=== PATIENT | female | born 1990 | race Caucasian/White ===

== ENCOUNTER → 2018-01-22 16:46 | Outpatient (CLI) | payer BC, SELFPAY ==
--- NOTE | 2018-01-22 16:51 | RAD_ITS ---
STUDY: X-RAY - LEFT ANKLE REASON FOR EXAM: Female, 27 years old. Pain, soft tissue swelling and bruising left lateral ankle, injury 5 days ago TECHNIQUE: 3 view(s) of the ankle. COMPARISON: None. FINDINGS: Normal visualized distal tibia and fibula. Normal medial and lateral malleoli. Normal tibiotalar articulation and ankle mortise. Normal visualized talus and calcaneus. The visualized subtalar, talonavicular, calcaneocuboid and tarsal articulations are normal. There is soft tissue swelling over the lateral malleolus. RAD/Ankle min 3 Views IMPRESSION: The osseous structures appear normal. There is soft tissue swelling over the lateral malleolus. Electronically Signed: Michelet Sadler MD at 20:46 EDT , Service support ,
== END ==
LOC: MTRAD 16:49
PROVIDERS: Family Provider Family Medicine; PCP Family Medicine; Visit Provider Family Medicine
DX: M25.572 Pain in left ankle and joints of left foot (principal)
CPT/HCPCS: 73610

== ENCOUNTER → 2019-03-12 09:39 | Outpatient (CLI) | payer BC, SELFPAY ==
[2019-03-12 13:12] LABS: T4 Total, Thyroxin 13.1 ug/dL (4.8-13.9); Thyroid Stim Hormone (TSH) 4.77 uIU/mL (0.358-3.74)
== END ==
PROVIDERS: Family Provider Family Medicine; PCP Family Medicine; Referring Provider Family Medicine; Visit Provider Family Medicine
DX: E03.9 Hypothyroidism, unspecified (principal)
CPT/HCPCS: 36415; 84436; 84443

== ENCOUNTER → 2020-03-29 15:39 | Outpatient (CLI) | payer BC, SELFPAY ==
[2015-08-29 07:23] VITALS: BMI 35.5
[2020-03-29 19:37] LABS: Thyroid Stim Hormone (TSH) 0.38 uIU/mL (0.358-3.74)
== END ==
PROVIDERS: PCP Family Medicine; Referring Provider Family Medicine; Visit Provider Family Medicine
DX: E03.9 Hypothyroidism, unspecified (principal)
CPT/HCPCS: 36415; 84439; 84443

== ENCOUNTER → 2020-07-05 14:31 | Outpatient (CLI) | payer BC, SELFPAY ==
[2015-08-29 07:23] VITALS: BMI 35.5
[2020-07-05 18:40] LABS: T4 Total, Thyroxin 13.5 ug/dL (4.8-13.9); Thyroid Stim Hormone (TSH) 1.11 uIU/mL (0.358-3.74)
== END ==
PROVIDERS: PCP Family Medicine; Referring Provider Family Medicine; Visit Provider Family Medicine
DX: E03.9 Hypothyroidism, unspecified (principal)
CPT/HCPCS: 36415; 84436; 84443

== ENCOUNTER 2021-10-22 12:40 | Outpatient (CLI) | payer BC, SELFPAY ==
[2021-10-22 15:09] LABS: Hematocrit 41.5 % (37-47); Mean Corp Hgb Conc 33.7 g/dL (32-36); Mean Corpuscular Hgb 29.7 pg (27.0-32.0); Mean Corpuscular Volume 88.1 fL (81-99); Platelet Count 269 K/mm3 (150-450); RBC Distribution Width CV 11.9 % (11.6-14.6); RBC Distribution Width SD 38.7 fl (35.1-43.9); Red Blood Count 4.71 M/mm3 (4.2-5.4); White Blood Count 6.6 K/mm3 (4.4-11.0)
[2021-10-22 16:17] LABS: AST(SGOT) 20 U/L (15-37); Alanine Aminotransfer ALT/SGPT 33 U/L (13-56); Albumin, Serum 3.9 g/dL (3.2-5.0); Alkaline Phosphatase 68 U/L (45-117); Anion Gap 8 (5-15); BUN 13 mg/dL (7-18); BUN/Creat Ratio 13.6 RATIO (10-20); Calcium,Total 8.4 mg/dL (8.5-10.1); Chloride 109 mmol/L (98-107); Creatinine, Serum 0.96 mg/dL (0.55-1.02); EST Glomerular Filtration Rate 72 mL/min (>60); Est Glom Filt Rate - Afr Amer 87 mL/min (>60); Globulin 3.8 g/dL (2.2-4.2); Glucose 103 mg/dL (74-106); Protein, Total 7.7 g/dL (6.4-8.2); Sodium Level 139 mmol/L (136-145)
[2021-10-24 11:45] LABS: T4 Total, Thyroxin 12.1 ug/dL (4.8-13.9); Thyroid Stim Hormone (TSH) 2.67 uIU/mL (0.358-3.74)
== END 2021-10-22 23:59 | disposition home or self-care (01) ==
PROVIDERS: PCP Family Medicine; Referring Provider Nurse Practitioner Family; Visit Provider Nurse Practitioner Family
DX: E03.9 Hypothyroidism, unspecified (principal); R10.9 Unspecified abdominal pain
CPT/HCPCS: 36415; 80053; 84436; 84443; 85027

== ENCOUNTER 2021-10-27 10:34 | Outpatient (CLI) | payer BC, SELFPAY ==
--- NOTE | 2021-10-27 10:38 | US_ITS ---
STUDY: ABDOMINAL ULTRASOUND REASON FOR EXAM: Female, 31 years old. epigastric and right lower quadrant pain TECHNIQUE: Transabdominal ultrasound was performed with real-time and static moura scale imaging. TECHNICAL QUALITY: Adequate. COMPARISON: None. FINDINGS: LIVER: 13.9 cm length. Increased echogenicity. No focal abnormality. Portal vein patent. No biliary dilatation. GALLBLADDER: Surgically absent. EXTRAHEPATIC BILE DUCTS: Common bile duct 4 mm not dilated. PANCREAS: Unremarkable. SPLEEN: Unremarkable. RIGHT KIDNEY: 10.1 cm length. No hydronephrosis. LEFT KIDNEY: 10.3 cm length. No hydronephrosis. AORTA/IVC: Unremarkable. ASCITES: None. US/Abdomen Complete IMPRESSION: Unremarkable abdominal ultrasound. Cholecystectomy. Electronically Signed: Mary Alejandre MD at 5:58 EDT ,
== END 2021-10-27 23:59 | disposition home or self-care (01) ==
PROVIDERS: PCP Family Medicine; Referring Provider Nurse Practitioner Family; Visit Provider Nurse Practitioner Family
DX: R10.31 Right lower quadrant pain (principal); R10.13 Epigastric pain
CPT/HCPCS: 76700

== ENCOUNTER → 2021-11-30 | Outpatient (CLI) | payer BC, SELFPAY ==
[2021-11-30 11:12] LABS: Erythrocyte Sedimentation Rate 2 mm/hr (0-30)
[2021-11-30 12:19] LABS: CRP 5.42 mg/L (0.0-3.0)
[2021-12-03 15:08] LABS: Anti-Centromere B Ab <0.2 AI (0.0-0.9); Anti-Chromatin <0.2 AI (0.0-0.9); Anti-Jo <0.2 AI (0.0-0.9); Anti-Scleroderma-70 AB 0.3 AI (0.0-0.9); RNP Ab <0.2 AI (0.0-0.9); SJOGREN'S Anti-SS-A test < 0.2 AI (0.0-0.9); SJOGREN'S Anti-SS-B test < 0.2 AI (0.0-0.9); Smith Ab <0.2 AI (0.0-0.9)
[2021-12-03 16:34] LABS: Anti-dsDNA Ab <1 IU/mL (0-9)
[2021-12-03 18:07] LABS: Endomysial Antibody IgA Negative (Negative)
[2021-12-03 21:43] LABS: Immunoglobulin A 143 mg/dL (87-352); t-Transglutaminase IgA <2 U/mL (0-3)
== END | disposition home or self-care (01) ==
LOC: LAB 10:31
PROVIDERS: PCP Family Medicine; Referring Provider Nurse Practitioner Adult Health; Visit Provider Nurse Practitioner Adult Health
DX: K59.00 Constipation, unspecified (principal); R14.0 Abdominal distension (gaseous); R10.9 Unspecified abdominal pain
CPT/HCPCS: 36415; 82784; 83516; 85652; 86140; 86225; 86235; 86255

== ENCOUNTER → 2021-12-13 | Outpatient (CLI) | payer BC, SELFPAY ==
--- NOTE | 2021-12-13 10:23 | NM_ITS ---
Study: Gastric emptying scan. COMPARISON: None. TECHNIQUE: Multiplanar multisequence MRI images of the abdomen were obtained following oral administration of 1 mCi TECHNETIUM 99M sulfur colloid. HISTORY: Pain. FINDINGS: Normal emptying of radiotracer by the stomach is noted. Gastric emptying half time is calculated at 34 minutes. NM/Gastric Emptying Study IMPRESSION: Normal gastric emptying study. Electronically Signed: Kwaku Mckeon MD at 16:06 EDT ,
== END | disposition home or self-care (01) ==
PROVIDERS: PCP Family Medicine; Visit Provider Nurse Practitioner Adult Health
DX: R10.9 Unspecified abdominal pain (principal); K59.00 Constipation, unspecified; R14.0 Abdominal distension (gaseous)
CPT/HCPCS: 78264; A9541

== ENCOUNTER → 2021-12-26 | Outpatient (CLI) | payer BC, SELFPAY ==
--- NOTE | 2021-12-26 14:18 | CT_ITS ---
STUDY: CT Abdomen And Pelvis W/ Contrast Injection 12/26/2021 3:10 PM REASON FOR EXAM: Female, 31 years old. ABDOMINAL PAIN abd pain, constipation Technologist Notes lower abdomen pain, prior cholecystectomy, IUD. TECHNIQUE: Transaxial images were obtained with oral contrast, and with Oral and amp; IV Readi-CAT and amp; 100mL Isovue-370 intravenous contrast. Individualized dose optimization techniques were used for this CT. COMPARISON: None. FINDINGS: The visualized lung bases are unremarkable. The visualized portions of the heart are within normal limits. Unremarkable liver. Unremarkable gallbladder and extrahepatic biliary system. Unremarkable spleen. Unremarkable pancreas. Unremarkable bilateral adrenal glands. No acute findings of the right kidney. No acute findings of the left kidney. Unremarkable visualized stomach. Unremarkable small intestine. Unremarkable colon. There is non-visualization of the appendix. There are no acute findings of the abdominal aorta. Unremarkable inferior vena cava. Subcentimeter mesenteric lymph nodes. Unremarkable urinary bladder. An intrauterine device is identified within the uterus. There is an umbilical hernia containing fat. Unremarkable osseous structures. CT/Abdomen/Pelvis WITH Contrast IMPRESSION: (NOT LISTED IN ORDER OF SIGNIFICANCE) There are no acute findings. Other findings as above. Electronically Signed: Topher Mitchell MD at 15:11 EDT ,
== END | disposition home or self-care (01) ==
LOC: CT 14:17
PROVIDERS: PCP Family Medicine; Referring Provider Nurse Practitioner Adult Health; Visit Provider Nurse Practitioner Adult Health
DX: R10.9 Unspecified abdominal pain (principal); K59.00 Constipation, unspecified; R14.0 Abdominal distension (gaseous)
CPT/HCPCS: 74177; Q9967; A4216

== ENCOUNTER → 2022-01-09 | Outpatient (CLI) | payer BC, SELFPAY | END | disposition home or self-care (01) | PROVIDERS: PCP Family Medicine; Visit Provider Nurse Practitioner Adult Health | DX: R79.82 Elevated C-reactive protein (CRP) (principal); K62.5 Hemorrhage of anus and rectum; R19.7 Diarrhea, unspecified | CPT/HCPCS: 36415 ==

== ENCOUNTER 2022-02-28 11:51 | Emergency (ER) | payer BC, SELFPAY ==
[2022-02-28 11:54] VITALS: BP 135/101; PULSE 89; RESP 16; TEMP 36.1; O2SAT 98; BMI 40.7
--- NOTE | 2022-02-28 11:55 | EX.ED.DYSGE1 ---
HPI History of Present Illness Chief Complaint: Allergic Reaction [facility] Medical History Abdominal pain Bloating Constipation Diarrhea Disease of gallbladder, unspecified Exposure to hepatitis C Fatigue Hypothyroidism Infectious gastroenteritis and colitis, unspecified Migraines Nausea Home Medications levothyroxine 125 mcg tablet 125 mcg PO DAILY 08/24/15 [History Last Taken Unknown] levonorgestrel 20 mcg/24 hours (7 yrs) 52 mg intrauterine device (Mirena) 1 device intrauterine ONCE 10/23/21 [History Last Taken Unknown] loratadine 10 mg capsule 10 mg PO DAILY 10/23/21 [History Last Taken Unknown] topiramate 50 mg tablet 50 mg PO BID 10/23/21 [History Last Taken Unknown] hyoscyamine sulfate 0.125 mg tablet 0.125 mg PO TID PRN abdominal pain #30 tabs 01/09/22 [Rx Last Taken Unknown] dicyclomine 10 mg capsule 10 mg PO BID abdominal pain/cramping #60 caps 02/11/22 [Rx Last Taken Unknown] Allergy/AdvReac Type Severity Reaction Status Date / Time sumatriptan [From Imitrex] Allergy Intermediate UNK Verified 02/28/22 11:52 Family History Mother Thyroid disorder Epilepsy Sister Thyroid disorder Father CAD (coronary artery disease) Thyroid disorder Surgical History History of cholecystectomy Social History Smoking Status: Never smoker alcohol intake: never substance use type: does not use Discharge Plan Triage Chief Complaint: Allergic Reaction ED Midlevel Provider: Mary Boyce ED Provider: Michael Prakash Dx/Rx/DC Orders Prescriptions: No Action topiramate 50 mg tablet 50 mg PO BID loratadine 10 mg capsule 10 mg PO DAILY Mirena 20 mcg/24 hours (7 yrs) 52 mg intrauterine device 1 device intrauterine ONCE Rx Instructions: as a single dose hyoscyamine sulfate 0.125 mg tablet 0.125 mg PO TID PRN (Reason: abdominal pain) Qty: 30 0RF Rx Instructions: try instead of dicyclomine levothyroxine 125 MCG tablet 125 mcg PO DAILY dicyclomine 10 mg capsule 10 mg PO BID Qty: 60 2RF Primary Care Provider: Kae Wilder Referrals: Kae Wilder MD [Primary Care Provider] -
--- NOTE | 2022-02-28 12:02 | EDS_ITS ---
HPI <DIANA Erickson - Last Filed: 02/28/22 13:18> History of Present Illness Chief Complaint: Allergic Reaction Narrative Narrative: 32-year-old female presents with an allergic reaction. Yesterday at 5 PM she had [place] food and then around 11 PM noticed swelling and redness of her eyelids face and upper neck. She took Benadryl at 2 AM but the rash has persisted. No swelling of her lips or tongue, no difficulty swallowing or breathing, no wheezing or shortness of breath, no vomiting or diarrhea. Denies any other new exposures. She is on medication for migraines and IBS which are chronic. [facility] <DIANA Erickson - Last Filed: 02/28/22 13:18> [facility] Medical History Abdominal pain Bloating Constipation Diarrhea Disease of gallbladder, unspecified Exposure to hepatitis C Fatigue Hypothyroidism Infectious gastroenteritis and colitis, unspecified Migraines Nausea Home Medications levothyroxine 125 mcg tablet 125 mcg PO DAILY 08/24/15 [History Last Taken Unknown] levonorgestrel 20 mcg/24 hours (7 yrs) 52 mg intrauterine device (Mirena) 1 device intrauterine ONCE 10/23/21 [History Last Taken Unknown] loratadine 10 mg capsule 10 mg PO DAILY 10/23/21 [History Last Taken Unknown] topiramate 50 mg tablet 50 mg PO BID 10/23/21 [History Last Taken Unknown] hyoscyamine sulfate 0.125 mg tablet 0.125 mg PO TID PRN abdominal pain #30 tabs 01/09/22 [Rx Last Taken Unknown] dicyclomine 10 mg capsule 10 mg PO BID abdominal pain/cramping #60 caps 02/11/22 [Rx Last Taken Unknown] diphenhydramine HCl 25 mg capsule (Benadryl) 50 mg PO TID PRN allergic reaction 5 days #30 caps 02/28/22 [Rx Last Taken Unknown] famotidine 20 mg tablet (Acid Controller) 20 mg PO BID #10 tabs 02/28/22 [Rx Last Taken Unknown] prednisone 50 mg tablet 50 mg PO DAILY #5 tabs 02/28/22 [Rx Last Taken Unknown] Allergy/AdvReac Type Severity Reaction Status Date / Time sumatriptan [From Imitrex] Allergy Intermediate UNK Verified 02/28/22 11:52 Family History Mother Thyroid disorder Epilepsy Sister Thyroid disorder Father CAD (coronary artery disease) Thyroid disorder Surgical History History of cholecystectomy Social History Smoking Status: Never smoker alcohol intake: never substance use type: does not use ROS <DIANA Erickson - Last Filed: 02/28/22 13:18> ROS ED ROS Narrative Constitutional: Negative for fever, chills, malaise. Eyes: Negative for visual change. ENT: Negative for sore throat, ear pain, rhinorrhea. CVS: Negative for palpitations, chest pain, syncope. Respiratory: Negative for shortness of breath, cough, orthopnea. GI: Negative for abdominal pain, nausea, vomiting, diarrhea, constipation, melena, hematochezia. : Negative for dysuria, hematuria or frequency. Neuro: Negative for headache, motor/sensory dysfunction. Skin: Positive for rash. Negative for abscess, or wound. Musc: Negative for joint pain, swelling, trauma. Heme: Negative for easy bruising, bleeding, lymphadenopathy. EXAM <DIANA Erickson - Last Filed: 02/28/22 13:18> Physical Exam Narrative Exam Narrative: CONST: Patient sitting in no acute distress. EYES: Normal inspection. ENT: Bilateral upper eyelids are swollen, no angioedema, moist mucous membranes, airway patent. NECK: Normal inspection. No stridor. RESP: No respiratory distress, CTAB. CVS: Regular rate and rhythm, no murmur, no gallop. ABD: Soft and nontender, no guarding or rebound, nondistended. Back: Normal inspection. SKIN: Red patchy skin around forehead and eyelids and upper neck. EXTREMITIES: Normal appearance, no pedal edema. NEURO: Oriented x4. PSYCH: Normal affect. Const Vital Signs: 02/28/22 11:54 02/28/22 13:24 Temperature 97.0 F L Temperature Source Temporal Pulse Rate 89 76 Respiratory Rate 16 21 H Blood Pressure 135/101 H 128/74 H Blood Pressure Mean 112 Pulse Ox 98 99 Oxygen Delivery Method Room Air <Dr. Michael Prakash MD - Last Filed: 02/28/22 17:50> Physical Exam Const Vital Signs: 02/28/22 11:54 02/28/22 13:24 Temperature 97.0 F L Temperature Source Temporal Pulse Rate 89 76 Respiratory Rate 16 21 H Blood Pressure 135/101 H 128/74 H Blood Pressure Mean 112 Pulse Ox 98 99 Oxygen Delivery Method Room Air [facility] <DIANA Erickson - Last Filed: 02/28/22 13:18> [facility] Narrative Medical decision making narrative: Patient has an allergic reaction with bilateral eyelid swelling and rash of the face and neck. No clear trigger. She appears well nontoxic. Vital signs within normal limits. She is speaking full sentences in no respiratory distress. No angioedema. Airway patent. No stridor or wheezing. No signs of anaphylaxis. Patient treated with prednisone, Benadryl, Pepcid with improvement will be discharged home with these medications. <Dr. Michael Prakash MD - Last Filed: 02/28/22 17:50> [facility] Narrative Medical decision making narrative: Patient has an allergic reaction with bilateral eyelid swelling and rash of the face and neck. No clear trigger. She appears well nontoxic. Vital signs within normal limits. She is speaking full sentences in no respiratory distress. No angioedema. Airway patent. No stridor or wheezing. No signs of anaphylaxis. Patient treated with prednisone, Benadryl, Pepcid with improvement will be discharged home with these medications. I have personally performed a face to face assessment of the patient and have reviewed the KATELYN Note. I performed a substantive portion of the visit including all aspects of the following. My huber findings include: History is remarkable for redness, swelling and itching. Started last evening. Patient denies ingestion of nuts, berries or shellfish food. She denies change in voice. Denies drooling. Denies shortness of breath, chest pain, nausea vomiting or orthostatic symptoms. Exam is patient has a erythematous blanching rash. There is soft tissue swellin g. There is no angioedema. Trachea is midline. There is no in-store extra stridor. Lungs are clear to auscultation. There is good movement of bilateral. Heart is regular. Medical Decision Making patient was treated with H1 and H2 filomena. She was discharged home to follow-up with PCP for allergy testing Other additions or changes: None Discharge Plan Triage Chief Complaint: Allergic Reaction ED Midlevel Provider: Mary Boyce ED Provider: Michael Prakash Dx/Rx/DC Orders Clinical Impression: Allergic reaction Instructions: ED General Allergic Reactions Prescriptions: New prednisone 50 mg tablet 50 mg PO DAILY Qty: 5 0RF famotidine [Acid Controller] 20 mg tablet 20 mg PO BID Qty: 10 0RF diphenhydramine HCl [Benadryl] 25 mg capsule 50 mg PO TID PRN (Reason: allergic reaction) 5 Days Qty: 30 0RF No Action topiramate 50 mg tablet 50 mg PO BID loratadine 10 mg capsule 10 mg PO DAILY Mirena 20 mcg/24 hours (7 yrs) 52 mg intrauterine device 1 device intrauterine ONCE Rx Instructions: as a single dose hyoscyamine sulfate 0.125 mg tablet 0.125 mg PO TID PRN (Reason: abdominal pain) Qty: 30 0RF Rx Instructions: try instead of dicyclomine levothyroxine 125 MCG tablet 125 mcg PO DAILY dicyclomine 10 mg capsule 10 mg PO BID Qty: 60 2RF Primary Care Provider: Kae Wilder Referrals: Kae Wilder MD [Primary Care Provider] - Activity Restrictions/Additional Instructions: Take the prescribed medications for the next few days to treat the allergic reaction. If your symptoms worsen or you develop lip or tongue swelling, difficulty swallowing or breathing come back to the ER immediately. Disposition Disposition: Home, Self Care Discharge Date/Time: 02/28/22 13:29
[2022-02-28] MEDS: predniSONE 20 MG Tablet 60 MG PO (12:08)
[2022-02-28] MEDS: DiphenhydrAMINE 50 MG/ML Syringe IV (12:08)
[2022-02-28] MEDS: Famotidine 200 MG/20 ML MDV 20 MG in 0.9% Normal Saline (Pres. free 8 ML 300 MG IV (12:36)
[2022-02-28 13:24] VITALS: BP 128/74; PULSE 76; RESP 21; O2SAT 99
== END 2022-02-28 13:29 | disposition home or self-care (01) ==
PROVIDERS: Emergency Provider Emergency Medicine; PCP Family Medicine; Visit Provider Emergency Medicine
DX: T78.40XA Allergy, unspecified, initial encounter (principal); M79.89 Other specified soft tissue disorders; G43.909 Migraine, unspecified, not intractable, without status migrainosus; K58.9 Irritable bowel syndrome, unspecified
CPT/HCPCS: 99283; A4216; J3490

== ENCOUNTER 2022-03-06 08:49 | Day surgery (SDC) | payer BC, SELFPAY ==
--- NOTE | 2022-03-06 | IMM_PTH ---
PATIENT: KRISTEN CR LOC: EN U#:[id number] AGE/SX: 32/F ROOM: RE03/06/[address]: Dr. Bakari Martin DO : 1990 BED: DIS: 03/06/2022 SPEC #: [id number] RECD: 03/07/22 06:53 STATUS: BRITANY RERodri #: [id number] HAO: 03/06/22 00:[address]: Bakari Martin DEPT: IMMUNOHISTOCHEMISTRY RECD BY: Anjum Chung ENTERED: 03/07/22 06:54 SP TYPE: IMMUNO OTHR DR: Dr. Kae Wilder MD Tissues: COLON BIOPSY Procedures: H Pylori (initial) KI-67 (add) P53 (add) PHYSICIAN & INSTITUTION [place] [id number] SPECIMEN INFORMATION: Tissue Source: A. Gastric biopsy Clinical Info: Abdominal pain, diarrhea, rectal bleeding, elevated c-reactive protein Specimen Number: [id number] CPT code: 23704, 02412 X2 METHODOLOGY: Deparaffinized sections of prefer/formalin-fixed tissue or PAP/DQ stained slides are incubated with monoclonal/polyclonal antibodies/oligonucleotide probes. Localization is made via biotin free immunoperoxidase method. Appropriate controls are performed and reacted as expected. Results on target cell population are indicated in the following table: RESULTS: ANTIBODY / CLONE RESULT Block A H Pylori (polyclonal) negative P53 (DO-7) negative Ki-67 (30-9) positive, low These tests were developed and their performance characteristics determined by [facility]. They may not have been cleared or approved by the U.S. Food and Drug Administration. The FDA has determined that such clearance or approval is not necessary. The above immunohistochemical/dualISH markers are ordered and reviewed by the Pathologist. INTERPRETATION: Gastric body, biopsy: -Negative for Helicobacter pylori organisms. -No evidence of dysplasia AM:cc
--- NOTE | 2022-03-06 09:12 | PCM.HP.BLA ---
History and Physical Date of Admission: 03/06/22 KRISTEN CR, is a 31 F who presents to the office today for 6 wk f/u epigastric pain, bloating, nausea, constipation Symptoms changed from mostly upper GI to mostly lower GI Much better in terms of the epigastric pain and bloating, but she had one day last week of nausea, vomiting and reflux Having diarrhea now, sharp pain in lower abd which radiates to lower back, bright red blood per rectum which was painless Dicyclomine 10 mg bid helped the lower abd pain, the diarrhea and the rectal bleeding stopped, but then became constipated. Having the diarrhea and pain every other day, can be multiple bouts of diarrhea per day. Feels constipated the other days. Still feeling like she doesn't fully evacuate. Feels like food isn't getting digested. No difficulty swallowing. She does get heartburn, increased in past 3 mos, she takes famotidine which usually works. Tried omeprazole x 4 wks but that wasn't effective for any of her symptoms. Was sent home from work a few times because of the pain CT neg Gastric emptying study normal CRP 5.42, celiac negative, PANDA comprehensive negative She is scheduled for EGD and colonoscopy in February She established with our office on 11/30/21 for sudden onset in Winter 2021 of epigastric pain, bloating, nausea, and constipation. No relief with famotidine, omeprazole, simethicone, miralax, stool softener, mag citrate, imodium. cholecystectomy in 2015. No FH GI issues. +FH autoimmune disorders ROS Const Constitutional: No fatigue ENT ENT: No difficulty swallowing Gastro GI: Positive for abdominal pain, bloating, constipation, diarrhea, heartburn, excessive flatus, nausea/dyspepsia and vomiting; No belching, change in bowel habits, change in stool character, coffee ground emesis, cramping, difficulty swallowing, feeling full early, incontinent of stools, Vomiting blood/hematemesis, Blood in stool, loose stools, Black,tarry stools, pain with swallowing or other Musc Musculoskeletal: Positive for back pain, muscle cramps and muscle weakness; No joint pain Skin Skin: No yellowing of the eye or itchy eyes Psych Psychiatric: No anxiety and No depression Endo Endocrine: No fatigue Aller/Imm Allergy/Immunologic: No itchy eyes Cruz/Lymp Hematologic/Lymphatic: No easy bleeding or easy bruising Exam Const General: cooperative, healthy appearing, no acute distress, well developed and well groomed [facility] Head: normal to inspection Eyes General: appearance normal, both eyes and all related structures Quality Reporting Tobacco Screening ([facility] 138) Smoking Status: Never smoker Assessment and Plan Assessment and Plan (1) Abdominal pain: ?Status:?Acute ?Plan: 31 yr old female with alternating diarrhea and constipation, abdominal pain, elevated CRP. Consider IBD, check labs thru [facility]. Consider IBS with alternating diarrhea and constipation.? Dicyclomine 10 mg twice daily was helpful however it caused some constipation, she would like to try hyoscyamine instead.? We will contact her with lab results.? She is already scheduled for endoscopy. (2) Diarrhea: ?Status:?Acute (3) Rectal bleeding: ?Status:?Acute (4) Elevated C-reactive protein (CRP): ?Status:?Acute ? ? ? Orders: Orders Miscellaneous Lab Procedure 01/09/22 K62.5 - Hemorrhage of anus and rectum, R19.7 - Diarrhea, unspecified, R79.82 - Elevated C-reactive protein (CRP) ? Medications: New hyoscyamine sulfate ?? try instead of dicyclomine 0.125 mg? PO TID PRN 30 tabs 0RF abdominal pain R10.9 - Unspecified abdominal pain ? I have re-examined the patient. There are no clinical changes since date of exam.
[2022-03-06 09:21] VITALS: BP 109/83; PULSE 86; RESP 17; TEMP 36.2; O2SAT 96; BMI 39.9
[2022-03-06 09:25] LABS: Internal QC Validated? YES +Cl - CLEAR BKGD; Pregnancy, Urine Negative Negative
[2022-03-06] MEDS: Lactated Ringers 1,000 ML 15 ML IV (09:25)
--- NOTE | 2022-03-06 10:00 | EGD_PTH ---
PATIENT: KRISTEN CR LOC: EN U#:[id number] AGE/SX: 32/F ROOM: RE03/06/[address]: Dr. Bakari Martin DO : 1990 BED: DIS: 03/06/2022 SPEC #: [id number] RECD: 03/06/22 11:13 STATUS: BRITANY LOTUS #: [id number] HAO: 03/06/22 10:[address]: Bakari Martin DEPT: SURGICAL PATHOLOGY RECD BY: Cathy Diaz ENTERED: 03/06/22 11:54 SP TYPE: EGD [facility]: Dr. Kae Wilder MD Tissues: A - Gastric mucous membrane B - Duodenum, NOS C - Esophagus, NOS D - Ileum, NOS E - Sigmoid colon biopsy F - Rectum, NOS Procedures: Surgery Specimen Level IV HEADER OPERATION: Colonoscopy, EGD ([facility]) and biopsy PRE-OP DIAGNOSIS: Abdominal pain, diarrhea, rectal bleeding, elevated c-reactive protein TISSUE SUBMITTED: A. Gastric biopsy, B. Duodenal biopsy, C. distal esophagus biopsy, D. Terminal ileum biopsy, E. Sigmoid colitis, F. Rectal biopsy MICROSCOPIC DIAGNOSIS A. Gastric biopsy: Mild chronic inflammation. Intestinal metaplasia. No evidence of dysplasia. See Comment. B. Duodenal biopsy: No pathologic change. C. distal esophagus biopsy: Gastric mucosa with mild chronic inflammation. No evidence of goblet cell metaplasia. See Comment. D. Terminal ileum biopsy: No pathologic change. E. Sigmoid colitis: No pathologic change. F. Rectal biopsy: No pathologic change. AM:am 03/07/2022 COMMENT A. The results of immunohistochemistry for Helicobacter pylori will be reported separately ([id number]). Alcian blue/PAS stain with matched control is used in the evaluation of the specimen. C: Alcian blue/PAS stain with matched control is used in the evaluation of the specimen. MICROSCOPIC DESCRIPTION Slides are reviewed. GROSS DESCRIPTION A. Received is one container labeled with the patient name and designated gastric. The specimen consists of two irregular fragments of light morin soft tissue that in aggregate measure 0.6 x 0.3 x 0.1 cm.. The specimen is totally submitted in one cassette. B. Received is one container labeled with the patient name and designated duodenal. The specimen consists of multiple irregular fragments of light morin soft tissue that in aggregate measure 0.6 x 0.3 x 0.1 cm.. The specimen is totally submitted in one cassette. C. Received is one container labeled with the patient name and designated distal esophagus. The specimen consists of one irregular fragment of light morin soft tissue that measures 0.3 x 0.3 x 0.1cm. The specimen is totally submitted in one cassette. D. Received is one container labeled with the patient name and designated terminal ileum. The specimen consists of two irregular fragments of light morin soft tissue that in aggregate measure 0.6 x 0.3 x 0.1 cm. The specimen is totally submitted in one cassette. E. Received is one container labeled with the patient name and designated sigmoid. The specimen consists of two irregular fragments of light morin soft tissue that in aggregate measure 0.6 x 0.3 x 0.1 cm. The specimen is totally submitted in one cassette. F. Received is one container labeled with the patient name and designated rectal. The specimen consists of two irregular fragments of light morin soft tissue that in aggregate measure 0.6 x 0.3 x 0.1 cm. The specimen is totally submitted in one cassette. /AM:noe 03/06/22 Tc:3 CPT:
[2022-03-06 10:38] VITALS: BP 109/83; BP 97/51; PULSE 89; RESP 16; TEMP 36.3; O2SAT 97
--- NOTE | 2022-03-06 10:39 | OP.EGD_ITS ---
Patient Name: Anotnieta Reveles Procedure Date: 03/06/2022 10:03 AM Date of : 1990 Age: 32 Procedure: Upper GI endoscopy Indications: Epigastric abdominal pain, Functional Dyspepsia, Suspected esophageal reflux, Failure to respond to medical treatment Providers: Bakari Martin DO Referring MD: Kae Wilder Medicines: Monitored Anesthesia Care Patient Profile: This is a 32 year old female. Refer to note in patient chart for documentation of history and physical. Patient has symptoms of chronic abdominal cramping, chronic global abdominal pain and chronic dyspepsia. Complications: No immediate complications. Procedure: Pre-Anesthesia Assessment: - Prior to the procedure, a History and Physical was performed, and patient medications and allergies were reviewed. The patient is competent. The risks and benefits of the procedure and the sedation options and risks were discussed with the patient. All questions were answered and informed consent was obtained. Patient identification and proposed procedure were verified in the pre-procedure area. Mental Status Examination: alert and oriented. Airway Examination: normal oropharyngeal airway and neck mobility. Respiratory Examination: clear to auscultation. CV Examination: normal. Prophylactic Antibiotics: The patient does not require prophylactic antibiotics. Prior Anticoagulants: The patient has taken no previous anticoagulant or antiplatelet agents. ASA Grade Assessment: II - A patient with mild systemic disease. After reviewing the risks and benefits, the patient was deemed in satisfactory condition to undergo the procedure. The anesthesia plan was to use moderate sedation / analgesia (conscious sedation). Immediately prior to administration of medications, the patient was re-assessed for adequacy to receive sedatives. The heart rate, respiratory rate, oxygen saturations, blood pressure, adequacy of pulmonary ventilation, and response to care were monitored throughout the procedure. The physical status of the patient was re-assessed after the procedure. After obtaining informed consent, the endoscope was passed under direct vision. Throughout the procedure, the patient's blood pressure, pulse, and oxygen saturations were monitored continuously. The pediatric colonoscope was introduced through the mouth, and advanced to the second part of duodenum. The upper GI endoscopy was accomplished without difficulty. The patient tolerated the procedure well. Scope In: 10:11:58 AM Scope Out: 10:16:40 AM Total Procedure Duration Time 0 hours 4 minutes 42 seconds Findings: The Z-line was irregular and was found 38 cm from the incisors. Biopsies were taken with a cold forceps for histology. Verification of patient identification for the specimen was done. Estimated blood loss was minimal. Patchy mildly erythematous mucosa without bleeding was found in the gastric body. Biopsies were taken with a cold forceps for histology. Verification of patient identification for the specimen was done. Estimated blood loss was minimal. Diffuse erythematous mucosa without active bleeding and with no stigmata of bleeding was found in the duodenal bulb. Biopsies were taken with a cold forceps for histology. Verification of patient identification for the specimen was done. Estimated blood loss was minimal. Impression: - Z-line irregular, 38 cm from the incisors. Biopsied. - Erythematous mucosa in the gastric body. Biopsied. - Erythematous duodenopathy. Biopsied. Recommendation: - Discharge patient to home. - Resume previous diet. - Continue present medications. - Await pathology results. - Repeat upper endoscopy in 1 year for surveillance. Procedure Code(s): --- Professional --- 36261, Esophagogastroduodenoscopy, flexible, transoral; with biopsy, single or multiple CPT copyright 2017 [employer]. All rights reserved. The codes documented in this report are preliminary and upon athletic monitor review may be revised to meet current compliance requirements. Bakari Martin DO 03/06/2022 10:39:12 AM This report has been signed electronically. Number of Addenda: 1 Note Initiated On: 03/06/2022 10:03 AM Addendum Number: 1 Addendum Date: 04/25/2022 6:15:46 AM MAC was used as sedation for this procedure. Bakari Martin DO 04/25/2022 6:15:52 AM This report has been signed electronically.
--- NOTE | 2022-03-06 10:40 | OP.CCLET_ITS ---
04/25/2022 Kae Wilder [address] [place] [address] Re : Upper GI endoscopy procedure for Antonieta Reveles Dear Dr. Wilder This procedure was performed on Sunday, March 06, 2022. My impressions and recommendations are as follows: Impressions : - Z-line irregular, 38 cm from the incisors. Biopsied. - Erythematous mucosa in the gastric body. Biopsied. - Erythematous duodenopathy. Biopsied. Recommendations : - Discharge patient to home. - Resume previous diet. - Continue present medications. - Await pathology results. - Repeat upper endoscopy in 1 year for surveillance. My findings are described in the full procedure note, which is enclosed. If I can be of further assistance, please feel free to contact me at . Sincerely, Bakari Martin, 03/06/2022 10:39:12 AM This report has been signed electronically.
[2022-03-06 10:45] VITALS: BP 109/83; BP 95/55; PULSE 90; RESP 16; O2SAT 98
--- NOTE | 2022-03-06 10:46 | OP.COLON_ITS ---
Patient Name: Antonieta Reveles Procedure Date: 03/06/2022 10:16 AM Date of : 1990 Age: 32 Procedure: Colonoscopy Indications: Abdominal pain in the left lower quadrant, Abdominal pain in the left upper quadrant, Diarrhea Providers: Bakari Martin DO Referring MD: Kae Wilder Medicines: Monitored Anesthesia Care Patient Profile: This is a 32 year old female. Refer to note in patient chart for documentation of history and physical. Patient has symptoms of chronic abdominal cramping, chronic global abdominal pain and chronic dyspepsia. Last Colonoscopy: none. The patient's first colonoscopy is today. Complications: No immediate complications. Procedure: Pre-Anesthesia Assessment: - Prior to the procedure, a History and Physical was performed, and patient medications and allergies were reviewed. The patient is competent. The risks and benefits of the procedure and the sedation options and risks were discussed with the patient. All questions were answered and informed consent was obtained. Patient identification and proposed procedure were verified in the pre-procedure area. Mental Status Examination: alert and oriented. Airway Examination: normal oropharyngeal airway and neck mobility. Respiratory Examination: clear to auscultation. CV Examination: normal. Prophylactic Antibiotics: The patient does not require prophylactic antibiotics. Prior Anticoagulants: The patient has taken no previous anticoagulant or antiplatelet agents. ASA Grade Assessment: II - A patient with mild systemic disease. After reviewing the risks and benefits, the patient was deemed in satisfactory condition to undergo the procedure. The anesthesia plan was to use moderate sedation / analgesia (conscious sedation). Immediately prior to administration of medications, the patient was re-assessed for adequacy to receive sedatives. The heart rate, respiratory rate, oxygen saturations, blood pressure, adequacy of pulmonary ventilation, and response to care were monitored throughout the procedure. The physical status of the patient was re-assessed after the procedure. After I obtained informed consent, the scope was passed under direct vision. Throughout the procedure, the patient's blood pressure, pulse, and oxygen saturations were monitored continuously. The colonoscope was introduced through the anus and advanced to the terminal ileum. The colonoscopy was performed without difficulty. The patient tolerated the procedure well. The quality of the bowel preparation was good. Scope In: 10:19:01 AM Scope Withdrawal Time 0 hours 9 minutes 2 seconds Scope Out: 10:32:23 AM Total Procedure Duration Time 0 hours 13 minutes 22 seconds Findings: The perianal and digital rectal examinations were normal. The mucosa vascular pattern in the rectum, in the recto-sigmoid colon, in the sigmoid colon and in the descending colon was segmentally decreased. Biopsies were taken with a cold forceps for histology. Verification of patient identification for the specimen was done. Estimated blood loss was minimal. A patchy area of the terminal ileum was congested. Biopsies were taken with a cold forceps for histology. Verification of patient identification for the specimen was done. Estimated blood loss was minimal. The retroflexed view of the distal rectum and anal verge was normal and showed no anal or rectal abnormalities. Non-bleeding internal hemorrhoids were found during retroflexion. The hemorrhoids were Grade I (internal hemorrhoids that do not prolapse). Impression: - Decreased mucosa vascular pattern in the rectum, in the recto-sigmoid colon, in the sigmoid colon and in the descending colon. Biopsied. - Congested mucosa in the terminal ileum. Biopsied. - The distal rectum and anal verge are normal on retroflexion view. Recommendation: - Discharge patient to home. - Resume previous diet. - Continue present medications. - Await pathology results. - Repeat colonoscopy in 5 years for surveillance. - Return to GI office. Procedure Code(s): --- Professional --- 88973, Colonoscopy, flexible; with biopsy, single or multiple CPT copyright 2017 [employer]. All rights reserved. The codes documented in this report are preliminary and upon trial attorney review may be revised to meet current compliance requirements. Bakari Martin DO 03/06/2022 10:45:40 AM This report has been signed electronically. Number of Addenda: 1 Note Initiated On: 03/06/2022 10:16 AM Addendum Number: 1 Addendum Date: 04/25/2022 6:15:59 AM MAC was used as sedation for this procedure. Bakari Martin DO 04/25/2022 6:16:03 AM This report has been signed electronically.
--- NOTE | 2022-03-06 10:46 | OP.CCLET_ITS ---
04/25/2022 Kae Wilder [address] [place] [address] Re : Colonoscopy procedure for Antonieta Reveles Dear Dr. Wilder This procedure was performed on Sunday, March 06, 2022. My impressions and recommendations are as follows: Impressions : - Decreased mucosa vascular pattern in the rectum, in the recto-sigmoid colon, in the sigmoid colon and in the descending colon. Biopsied. - Congested mucosa in the terminal ileum. Biopsied. - The distal rectum and anal verge are normal on retroflexion view. Recommendations : - Discharge patient to home. - Resume previous diet. - Continue present medications. - Await pathology results. - Repeat colonoscopy in 5 years for surveillance. - Return to GI office. My findings are described in the full procedure note, which is enclosed. If I can be of further assistance, please feel free to contact me at . Sincerely, Bakari Martin, 03/06/2022 10:45:40 AM This report has been signed electronically.
[2022-03-06 10:50] VITALS: BP 109/83; BP 99/58; PULSE 84; RESP 16; O2SAT 99
[2022-03-06 10:55] VITALS: BP 105/64; BP 109/83; PULSE 83; RESP 16; TEMP 36.3; O2SAT 100
[2022-03-06 11:18] VITALS: BP 109/83
== END 2022-03-06 11:20 | disposition home or self-care (01) ==
LOC: EN 08:50 → AC 08:52
PROVIDERS: Anesthesiology; PCP Family Medicine; Referring Provider Family Medicine; Visit Provider Internal Medicine Gastroenterology
PROC: 0DJD8ZZ Inspection of Lower Intestinal Tract, Via Natural or Artificial Opening Endoscopic (ICD-10-PCS; CPT 45378; principal; 2022-03-06 09:55)
DX: K62.5 Hemorrhage of anus and rectum (principal); K64.0 First degree hemorrhoids; R10.9 Unspecified abdominal pain; K63.89 Other specified diseases of intestine; R19.7 Diarrhea, unspecified; R79.82 Elevated C-reactive protein (CRP)
CPT/HCPCS: 45380; 43239; 81025; 88305; 88341; 88342; J7120; J2405

== ENCOUNTER → 2022-04-10 | Outpatient (CLI) | payer BC, SELFPAY ==
[2022-04-17 10:54] LABS: Pancreatic Elastase, Fecal 209 (>200)
[2022-04-18 16:22] LABS: Calprotectin, Stool 122 ug/g (0-120)
== END | disposition home or self-care (01) ==
LOC: LAB 15:27
PROVIDERS: PCP Family Medicine; Referring Provider Nurse Practitioner Adult Health; Visit Provider Nurse Practitioner Adult Health
DX: K58.9 Irritable bowel syndrome, unspecified (principal); R19.7 Diarrhea, unspecified; R10.9 Unspecified abdominal pain
CPT/HCPCS: 82653; 83630; 83993; 87506

== ENCOUNTER → 2022-11-22 | Outpatient (CLI) | payer BC, SELFPAY ==
[2022-11-22 14:46] LABS: Absolute Lymphocyte Count 1.89 X10^3/uL (0.83-4.51); Absolute Neutrophil Count 4.6 X10^3/uL (2.0-7.7); Basophil# 0.07 X10^3/uL; Eosinophil# 0.14 X10^3/uL; Eosinophils% 1.9 % (0-5); Hematocrit 41.1 % (37-47); Hemoglobin 13.5 g/dL (12.0-15.0); Lymphocyte # 1.89 X10^3/ul (0.83-4.51); Lymphocyte % 26.1 % (19-41); Mean Corp Hgb Conc 32.8 g/dL (32-36); Mean Corpuscular Hgb 29.3 pg (27.0-32.0); Mean Corpuscular Volume 89.2 fL (81-99); Mean Platelet Vol. 10.6 fl (6.2-12.0); Monocyte# 0.48 X10^3/uL; Monocyte% 6.6 % (0-10); NRBC Flagged by Analyzer 0 % (0-5); Neutrophil # 4.64 X10^3/uL (2.7-7.7); Neutrophil % 64.3 % (47-70); Platelet Count 227 K/mm3 (150-450); RBC Distribution Width CV 11.9 % (11.6-14.6); RBC Distribution Width SD 37.4 fl (35.1-43.9); Red Blood Count 4.61 M/mm3 (4.2-5.4); White Blood Count 7.2 K/mm3 (4.4-11.0)
[2022-11-22 15:12] LABS: ALB/GLOB Ratio 0.9 RATIO (0.9-2.4); AST(SGOT) 26 U/L (15-37); Alanine Aminotransfer ALT/SGPT 34 U/L (13-56); Albumin, Serum 3.7 g/dL (3.2-5.0); Alkaline Phosphatase 69 U/L (45-117); Anion Gap 7 (5-15); BUN 12 mg/dL (7-18); BUN/Creat Ratio 12.8 RATIO (10-20); Calcium,Total 8.7 mg/dL (8.5-10.1); Chloride 110 mmol/L (98-107); Creatinine, Serum 0.94 mg/dL (0.55-1.02); EST Glomerular Filtration Rate 73 mL/min (>60); Est Glom Filt Rate - Afr Amer 89 mL/min (>60); Globulin 3.9 g/dL (2.2-4.2); Glucose 108 mg/dL (74-106); Potassium 4.1 mmol/L (3.5-5.1); Protein, Total 7.6 g/dL (6.4-8.2); Sodium Level 138 mmol/L (136-145); T4 Total, Thyroxin 12.1 ug/dL (4.8-13.9); Thyroid Stim Hormone (TSH) 2.01 uIU/mL (0.358-3.74)
== END | disposition home or self-care (01) ==
PROVIDERS: PCP Family Medicine; Visit Provider Family Medicine
DX: E03.9 Hypothyroidism, unspecified (principal); R45.89 Other symptoms and signs involving emotional state
CPT/HCPCS: 36415; 80053; 84436; 84443; 85025

== ENCOUNTER → 2023-11-10 | Outpatient (CLI) | payer BC, SELFPAY ==
[2023-11-10 17:57] LABS: T4 Total, Thyroxin 11.7 ug/dL (4.8-13.9); Thyroid Stim Hormone (TSH) 3.32 uIU/mL (0.358-3.74)
== END | disposition home or self-care (01) ==
LOC: MFPLAB 15:20
PROVIDERS: PCP Family Medicine; Visit Provider Family Medicine
DX: E03.9 Hypothyroidism, unspecified (principal)
CPT/HCPCS: 36415; 84436; 84443

== ENCOUNTER 2024-01-04 13:44 | Emergency (ER) | payer BC, SELFPAY ==
[2024-01-04 13:45] VITALS: BP 132/63; PULSE 77; RESP 14; TEMP 36.3; O2SAT 97; BMI 41.6
--- NOTE | 2024-01-04 13:58 | CT_ITS ---
EXAM: CT ABDOMEN AND PELVIS WITHOUT INTRAVENOUS CONTRAST CLINICAL INDICATION: right lower abd pain TECHNIQUE: Helically acquired images were obtained of the abdomen and pelvis without intravenous contrast. This CT exam was performed using one or more of the following dose reduction techniques: automated exposure control, adjustment of the mA and/or kV according to patient size, and/or use of iterative reconstruction technique. RADIATION DOSE: CTDIvol = 17.71 mGy, DLP = 885.11 mGy-cm COMPARISON: 6.8.22 FINDINGS: LOWER THORAX: Unremarkable. Lung bases are clear. No cardiomegaly. No significant pericardial effusion. ABDOMEN: LIVER: Unremarkable. Homogeneous. GALLBLADDER AND BILE DUCTS: Cholecystectomy changes. No intra- or extrahepatic biliary ductal dilation. PANCREAS: Unremarkable. No focal cystic mass. SPLEEN: Unremarkable. Normal size without focal cystic or solid mass. ADRENALS: Unremarkable. No nodules. KIDNEYS AND URETERS: Unremarkable. Normal renal size and position. No hydronephrosis. STOMACH AND BOWEL: Unremarkable. No stomach or bowel distention. No focal inflammatory change. PELVIS: APPENDIX: Unremarkable appearance of the appendix. BLADDER: Unremarkable. REPRODUCTIVE: Uterus contains an IUD. ABDOMEN and PELVIS: INTRAPERITONEAL SPACE: Unremarkable. No ascites or other fluid collection. No free air. BONES/JOINTS: Unremarkable. No suspicious lytic or blastic abnormality. SOFT TISSUES: Umbilical hernia containing fat. VASCULATURE: Unremarkable. Abdominal aorta is non-dilated. LYMPH NODES: Unremarkable. No enlarged lymph nodes. CT/Abdomen/Pelvis without Cont IMPRESSION: No acute findings in the abdomen or pelvis. Electronically Signed: Topher Mitchell MD at 15:33 EDT ,
--- NOTE | 2024-01-04 13:59 | EX.ED.DYSGE1 ---
HPI History of Present Illness Chief Complaint: Abd Pain Detail of Chief Complaint: Dysuria and foul odor to urine Informant: patient Narrative Narrative: Patient presents to the emergency department complaint dysuria and a foul odor to her urine it has been on for about a week. She tells me she had a UTI about 2 months ago and was treated with antibiotics and got better. Today she went to urgent care and they pressed on her abdomen she had pain in the right lower quadrant so they sent her to the ER to rule out appendicitis. She has had nausea but no vomiting. She denies fever. She is unsure of her last menstrual period as she is on the Mirena. 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 C Fatigue Heartburn History of edema History of steroid therapy Hypothyroidism Infectious gastroenteritis and colitis, unspecified Leg cramps Migraines Nausea Non-smoker Rash Wears contact lenses Home Medications ?Medication ?Instructions ?Recorded ?Last Taken ?Type levothyroxine 125 mcg tablet 137 mcg PO DAILY 08/24/15 03/06/22 History levonorgestrel 21 mcg/24 hr (up to 1 device intrauterine ONCE 10/23/21 Unknown History 8 years) 52 mg intrauterine device (Mirena) fexofenadine 180 mg tablet 180 mg PO DAILY 01/04/24 Unknown History (Pau Allergy) fluoxetine 20 mg capsule (Prozac) 20 mg PO DAILY 01/04/24 Unknown History Allergy/AdvReac Type Severity Reaction Status Date / Time sumatriptan (From Imitrex) Allergy Intermediate UNK Verified 01/04/24 13:47 Family History Mother Thyroid disorder Epilepsy Sister Thyroid disorder Father CAD (coronary artery disease) Thyroid disorder Surgical History History of cholecystectomy Social History Smoking Status: Never smoker alcohol intake: never substance use type: does not use ROS ROS ED Review of Systems ROS Unobtainable: other Constitutional Constitutional ED: Reports lethargy; Denies chills, fever(s), sweats or weight loss Eyes Eyes: Denies blurry vision, change in vision or diplopia ENT ENT ED: Denies rhinorrhea or sore throat Cardiovascular Cardiovascular: Denies chest pain, orthopnea or racing heartbeat Respiratory/Chest Respiratory/Chest: Denies cough, dyspnea, dyspnea on exertion, orthopnea or sputum Gastrointestinal Gastrointestinal: Reports abdominal pain and nausea; Denies diarrhea or vomiting Genitourinary Genitourinary ED: Denies dysuria, hematuria or urinary frequency Musculoskeletal Musculoskeletal: Denies arthralgias, back pain, myalgias or neck pain Integumentary Denies abscess, Abrasions or rash Neurologic Neurologic: Denies headache(s) or weakness Psychiatric Psychiatric: Denies anxiety, depression or suicidal thoughts Endocrine Endocrinology: Denies polydipsia, polyphagia or polyuria Hematologic/Lymphatic Hematologic/Lymphatic: Denies easy bleeding, easy bruising or lymphadenopathy Allergic/Immunologic Allergic/Immunologic ED: Denies mouth swelling, tongue swelling or urticaria EXAM Physical Exam Const Vital Signs: 01/04/24 13:45 01/04/24 15:44 Temperature 97.3 F L 98.3 F Temperature Source Temporal Pulse Rate 77 65 Respiratory Rate 14 16 Blood Pressure 132/63 H 114/71 Blood Pressure Mean 86 85 Pulse Ox 97 99 Oxygen Delivery Method Room Air Positive well nourished and well developed General Appearance ED: well developed and NAD HEENT Reports TM's clear and moist mucous membranes normocephalic and atraumatic; Negative for trauma or tenderness Tympanic Membrane ED: Yes TM's clear Eyes PERRL and EOMs intact bilaterally General Eye ED: Negative for pale conjunctiva or scleral icterus Neck no lymphadenopathy, supple and no JVD General: Negative for tenderness Chest Wall inspection of chest normal and palpation of chest normal Chest: Negative for tenderness Resp normal respiratory effort and clear to auscultation bilaterally Effort and Inspection: Negative for respiratory distress or pain with movement Auscultation: Negative for rhonchi, wheezes or diminished lung sounds Cardio regular rate, regular rhythm, S1 normal heart sound, S2 normal heart sound and no murmurs Peripheral Pulses: pulses 2+ throughout GI normal to inspection, nondistended, normoactive bowel sounds, soft to palpation, non-tender, non-distended and no masses Back/Spine no CVA tenderness and no thoracic nor lumbar tenderness Extremity normal to inspection General Extremety ED: Negative for edema General Extremity: Negative for edema Neuro oriented x3, CN's II-XII intact bilaterally, no sensory deficits noted and gait normal Sensorium / Orientation: awake, alert, oriented to person, oriented to place and oriented to time Motor Exam: strength 5/5 throughout and strength abnormal Psych mental status grossly normal Skin no rashes or lesions noted and no wounds MDM MDM MDM Narrative Medical decision making narrative: Patient presents the emergency department with complaint of a foul odor to the urine and she bought some sort of the test online and she had some abnormal values on it so that is why she went to urgent care. Patient was noted to have some right-sided abdominal discomfort on palpation although she had not been complaining of abdominal pain and was referred to the ER to rule out appendicitis. IV line established. CBC with differential count 7.5 with hemoglobin of 13 and platelet count of 187. Chemistries unremarkable. hCG was negative. Urinalysis was normal. CT scan of the abdomen pelvis without contrast was unremarkable and showed a normal appendix and no evidence of kidney stones. I did send off a urine culture. Discussed with her about possibility for pelvic infections however she is and has not had any discharge and they are monogamous and she is not concerned about pelvic inflammatory disease. Patient will be discharged to home advised to follow-up with primary care physician within next 3 to 5 days. Lab Data Attestation: I reviewed the patient's lab results. Labs: Laboratory Results - last 24 hr 01/04/24 01/04/24 14:00 15:05 WBC 7.5 RBC 4.55 Hgb 13.4 Hct 39.8 MCV 87.5 MCH 29.5 MCHC 33.7 RDW Std Deviation 38.4 RDW Coeff of Yudith 12.0 Plt Count 187 MPV 10.6 Immature Gran % (Auto) 0.100 Neut % (Auto) 65.8 Lymph % (Auto) 24.9 Woodson % (Auto) 7.0 Eos % (Auto) 1.7 Baso % (Auto) 0.5 Absolute Neuts (auto) 5.0 Absolute Lymphs (auto) 1.88 Nucleated RBC % 0 Sodium 138 Potassium 4.5 Chloride 106 Carbon Dioxide 27.0 Anion Gap 5 BUN 10 Creatinine 0.96 Estim Creat Clear Calc 93.91 Est GFR (MDRD) Af Amer 86 Est GFR (MDRD) Non-Af 71 BUN/Creatinine Ratio 10.4 Glucose 91 Calcium 9.0 Serum , Qual NEGATIVE Urine Color Yellow Urine Clarity Clear Urine pH 7.0 Ur Specific [place] 1.005 Urine Protein Negative Urine Glucose (UA) Normal Urine Ketones Negative Urine Occult Blood 10 H Urine Nitrite Negative Urine Bilirubin Negative Urine Urobilinogen Normal Ur Leukocyte Esterase 25 H Urine RBC 0 SEEN Urine WBC 0-5 SEEN Ur Squamous Epith Cells 0 SEEN Urine Bacteria RARE Urine Mucus 0 SEEN Radiography Diagnostic Testing: Clinical Impression(s) from Imaging Studies Abdomen/Pelvis CT 01/04/24 13:58 IMPRESSION: No acute findings in the abdomen or pelvis. Electronically Signed: Topher Mitchell MD at 15:33 EDT Reading Location ID and State: [facility] / [place] , Service support , Discharge Plan Triage Chief Complaint: Abd Pain ED Provider: Yogesh Golden Dx/Rx/DC Orders Clinical Impression: Abdominal pain Instructions: ED Abdominal Pain Unkn Cause Fem Prescriptions: No Action Mirena 20 mcg/24 hours (7 yrs) 52 mg intrauterine device 1 device intrauterine ONCE Rx Instructions: as a single dose levothyroxine 125 MCG tablet 137 mcg PO DAILY fexofenadine [Pau Allergy] 180 mg tablet 180 mg PO DAILY fluoxetine [Prozac] 20 mg capsule 20 mg PO DAILY Primary Care Provider: Kae Wilder Referrals: Kae Wilder MD [Primary Care Provider] - 3-5 Days Print Language: Turkish Disposition Disposition: Home, Self Care
[2024-01-04 14:13] LABS: Absolute Lymphocyte Count 1.88 X10^3/uL (0.83-4.51); Basophil# 0.04 X10^3/uL; Basophil% 0.5 % (0-1); Eosinophil# 0.13 X10^3/uL; Eosinophils% 1.7 % (0-5); Hematocrit 39.8 % (37-47); Hemoglobin 13.4 g/dL (12.0-15.0); Lymphocyte # 1.88 X10^3/ul (0.83-4.51); Lymphocyte % 24.9 % (19-41); Mean Corp Hgb Conc 33.7 g/dL (32-36); Mean Corpuscular Hgb 29.5 pg (27.0-32.0); Mean Corpuscular Volume 87.5 fL (81-99); Mean Platelet Vol. 10.6 fl (6.2-12.0); Monocyte# 0.53 X10^3/uL; NRBC Flagged by Analyzer 0 % (0-5); Neutrophil # 4.95 X10^3/uL (2.7-7.7); Neutrophil % 65.8 % (47-70); POSITIVE COUNT YES; Platelet Count 187 K/mm3 (150-450); RBC Distribution Width SD 38.4 fl (35.1-43.9); Red Blood Count 4.55 M/mm3 (4.2-5.4); White Blood Count 7.5 K/mm3 (4.4-11.0)
[2024-01-04 14:25] LABS: Anion Gap 5 (5-15); BUN 10 mg/dL (7-18); BUN/Creat Ratio 10.4 RATIO (10-20); Chloride 106 mmol/L (98-107); Creatinine, Serum 0.96 mg/dL (0.55-1.02); EST Glomerular Filtration Rate 71 mL/min (>60); Est Glom Filt Rate - Afr Amer 86 mL/min (>60); Estimated Creatinine Clearance 93.91 ml/min; Glucose 91 mg/dL (74-106); Potassium 4.5 mmol/L (3.5-5.1); Sodium Level 138 mmol/L (136-145)
[2024-01-04 14:29] LABS: Internal QC Validated? YES +Cl - CLEAR BKGD; Pregnancy, Serum, hCG Quali. NEGATIVE Negative
[2024-01-04] MEDS: 0.9% Normal Saline (1000mL) 1,000 ML 150 ML IV (15:00)
[2024-01-04 15:10] LABS: Mucous, Urine 0 SEEN /hpf (<or=2+); Red Blood Cells-Urine 0 SEEN /hpf (0-5); Squamous Epithelial Cells - UA 0 SEEN /hpf (5-10)
[2024-01-04 15:37] LABS: Color, Urine Yellow (Yellow); Glucose, Dipstick Normal (Normal); Ketone-Dipstick Negative (Negative); Leukocyte Esterase-Dipstick 25 /ul (Negative); Nitrite-Dipstick Negative (Negative); Occult Blood-Urine 10 /ul (Negative); Protein-Dipstick Negative (Negative); Specific Gravity, Urine 1.005 (1.002-1.030); Urine Bilirubin Dipstick Negative (Negative); Urine Clarity Clear (Clear); Urine Urobilinogen Normal (Normal)
[2024-01-04 15:44] VITALS: BP 114/71; PULSE 65; RESP 16; TEMP 36.8; O2SAT 99
[2024-01-04 15:46] LABS: Bacteria RARE /hpf (None Seen); White Blood Cells 0-5 SEEN /hpf (0-5)
[2024-01-04] MEDS: Ketorolac 30 MG/ML Syringe IV (15:48)
== END 2024-01-04 15:57 | disposition home or self-care (01) ==
PROVIDERS: Emergency Provider Emergency Medicine; PCP Family Medicine; Visit Provider Emergency Medicine
DX: R10.9 Unspecified abdominal pain (principal); R30.0 Dysuria; R11.0 Nausea; Z87.440 Personal history of urinary (tract) infections; Z90.49 Acquired absence of other specified parts of digestive tract
CPT/HCPCS: 74176; 80048; 81001; 84703; 85025; 87086; 87088; 87186; 99283; J7030; A4216

== ENCOUNTER → 2025-01-07 | Outpatient (CLI) | payer BC, SELFPAY ==
[2025-01-07 14:46] LABS: Hematocrit 38.6 % (37-47); Hemoglobin 12.8 g/dL (12.0-15.0); Mean Corp Hgb Conc 33.2 g/dL (32-36); Mean Corpuscular Hgb 29.7 pg (27.0-32.0); Mean Corpuscular Volume 89.6 fL (81-99); Mean Platelet Vol. 10.7 fl (6.2-12.0); Platelet Count 280 K/mm3 (150-450); RBC Distribution Width CV 12.2 % (11.6-14.6); RBC Distribution Width SD 40.4 fl (35.1-43.9); Red Blood Count 4.31 M/mm3 (4.2-5.4); White Blood Count 7.3 K/mm3 (4.4-11.0)
[2025-01-07 15:04] LABS: Hemoglobin A1c 4.8 % (<=5.6)
[2025-01-07 16:08] LABS: ALB/GLOB Ratio 1.4 RATIO (0.9-2.4); AST(SGOT) 28 U/L (<=31); Alanine Aminotransfer ALT/SGPT 28 U/L (<=34); Albumin, Serum 4.1 g/dL (3.5-5.0); Alkaline Phosphatase 66 U/L (35-104); Anion Gap 9 (5-15); BUN 9 mg/dL (4-19); BUN/Creat Ratio 10.6 RATIO (10-20); Carbon Dioxide 21.5 mmol/L (21.0-32.0); Chloride 109 mmol/L (98-108); Cholesterol 172 mg/dL (<=200); Creatinine, Serum 0.88 mg/dL (0.70-1.20); EST Glomerular Filtration Rate 88 (>60); Globulin 2.8 g/dL (2.2-4.2); Glucose 81 mg/dL (70-99); High Density Lipoprotein 47 mg/dL; Low Density Lipoprotein Calc. 103 mg/dL; Potassium 4.5 mmol/L (3.3-5.1); Protein, Total 6.9 g/dL (5.9-8.4); Sodium Level 139 mmol/L (133-145); Thyroid Stim Hormone (TSH) 0.161 uIU/mL (0.300-4.200); Triglycerides 111 mg/dL; Very Low Density Lipoprotein 22 mg/dL (5-40); Vitamin D,25 Hydroxy 13.5 ng/mL (30-100); cholesterol:hdl ratio screen 3.65
[2025-01-07 16:44] LABS: Hepatitis C Antibody Nonreactive (Nonreactive)
== END | disposition home or self-care (01) ==
LOC: LAB 13:15
PROVIDERS: PCP Family Medicine
DX: Z00.00 Encounter for general adult medical examination without abnormal findings (principal); F33.9 Major depressive disorder, recurrent, unspecified; E03.9 Hypothyroidism, unspecified
CPT/HCPCS: 36415; 80053; 80061; 82306; 83036; 84439; 84443; 85027; 86803